=== PATIENT | male | born 1970 | race Caucasian/White ===

== ENCOUNTER → 2018-10-20 | Outpatient (CLI) | payer BC ==
[2015-08-25 08:05] VITALS: BP 134/81
[~2018-10-20] MED LIST: ZOLPIDEM 5 MG TABLET. PO ONE
--- NOTE | 2018-10-21 10:38 | SLEEP ---
DATE OF STUDY: 10/20/2018 ATTENDING PHYSICIAN: Dr. Kermit Moreira. The patient is 48 years old who weighs 230 pounds with a BMI of 32. The patient's [place] score was 10. The patient had sleep study 7 years ago and was positive for GINA, and his CPAP machine broke. Another split night study was performed at [facility]. During the night study, the patient spent 423 minutes in bed and slept for 340 minutes with a sleep efficiency of 80%. Sleep latency was 55 minutes with a REM latency of 382 minutes. Both were prolonged. Overall, sleep architecture showed increased stage 1 and stage 2 sleep, normal slow wave sleep and reduced REM sleep, which was 4% of the total sleep time. During the initial diagnostic portion of the study, the patient slept for 97 minutes. During that time, there were 50 obstructive apneas, 8 mixed apneas, no central apneas and 24 hypopneas. The patient's apnea-hypopnea index of 51 per hour, supine index 28 per hour. REM sleep was not seen during the diagnostic portion. EKG monitoring revealed normal sinus rhythm, average heart rate 70 beats per minute, no sustained arrhythmias observed. Nocturnal oximetry study revealed an average oxygen saturation of 97%, with the lowest of 85%. 3.7% of time oxygen saturation remained less than 90%. PLMS were seen at index of 63 per hour and 2 per hour caused EEG arousals. The patient met the criteria for CPAP initiation. It was started at 7 cm water as the patient was unable to tolerate lower pressure. At a final pressure of 12 cm water, the patient slept for 53 minutes. The patient had supine sleep throughout and a REM period was also observed. The patient's AHI was reduced to 1 per hour and oxygen saturation remained above 91%. The patient used a medium size full face mask. IMPRESSION: 1. Severe sleep apnea-hypopnea syndrome at an AHI of 51 per hour. 2. Mild nocturnal hypoxia secondary to obstructive sleep apnea, but resolved with CPAP. 3. Severe PLMS. RECOMMENDATIONS: 1. CPAP at 12 cm water completely eliminated the patient's sleep apnea and should be used on a nightly basis. 2. Follow up in 4-6 weeks to assess compliance with CPAP and to document clinical improvement. 3. Weight loss is strongly advised. 4. Avoid [employer] depressants. 5. Caution regarding driving until symptoms of sleep apnea resolve with the use of CPAP. 6. The patient should also be further evaluated for symptoms of restless legs during the day and if present, it can be treated with dopaminergic agonist agents. JEAN CLAUDE VIGIL MD DR: TANI/jackie JOB#: [id number] / [id number] KERMIT Burgos MD
== END | disposition home or self-care (01) ==
LOC: SLPLAB 18:55
PROVIDERS: ATTEND Family Medicine
DX: G47.33 Obstructive sleep apnea (adult) (pediatric) (principal); G47.34 Idiopathic sleep related nonobstructive alveolar hypoventilation; G47.61 Periodic limb movement disorder; E66.9 Obesity, unspecified; Z68.32 Body mass index [BMI] 32.0-32.9, adult
CPT/HCPCS: 95810